=== PATIENT | female | born 1965 | race Two or more races ===

== ENCOUNTER 2019-04-05 07:46 | Outpatient (CLI) | payer OTHER | END 2019-04-05 07:51 | disposition home or self-care (01) | LOC: SONOGRAMA 07:46 | DX: E04.1 Nontoxic single thyroid nodule (principal) ==

== ENCOUNTER 2019-10-18 07:09 | Outpatient (CLI) | payer OTHER | END 2019-10-18 07:12 | disposition home or self-care (01) | LOC: RX STUDY 07:09 | DX: K59.09 Other constipation (principal) ==

== ENCOUNTER → 2019-10-27 | Outpatient (CLI) | payer OTHER | END | disposition home or self-care (01) | LOC: MRI 10-25 10:45 | DX: R11.2 Nausea with vomiting, unspecified (principal); R10.30 Lower abdominal pain, unspecified | CPT/HCPCS: 74183; A9575 ==

== ENCOUNTER 2020-01-12 07:43 | Outpatient (CLI) | payer OTHER | END 2020-01-16 08:00 | disposition home or self-care (01) | LOC: RAD 07:43 → TOM 07:43 → RAD 01-16 08:00 | DX: K59.09 Other constipation (principal) ==

== ENCOUNTER 2020-02-14 10:41 | Inpatient (IN) | payer OTHER ==
[~2020-02-14] VITALS: Ht 149.9 cm; Wt 45.4 kg
[2020-02-24] MEDS ORDERED: DERMACINRX5000 UNIT PO (12:56)
[2020-02-24] MEDS ORDERED: COMPLETE OMEGA1 EACH PO (12:56)
[2020-02-29] MEDS ORDERED: OMEGA-3 ACID ETH1 GM (10:24)
[2020-02-29] MEDS ORDERED: ZANAFLEX2 MG PO (10:24)
[2020-02-29] MEDS ORDERED: VITAMIN D31250 MCG (10:24)
[2020-02-29] MEDS ORDERED: MONTELUKAST SOD10 MG (10:24)
[2020-02-29] MEDS ORDERED: VITAMIN B-125000 MCG (10:25)
[2020-02-29] MEDS ORDERED: [UNRECOGNIZED DRUG - OTHER] (10:25)
[2020-02-29] MEDS ORDERED: GUAIFENESIN-DM1 EAC1 (10:25)
[2020-02-29] MEDS ORDERED: MAG-OXIDE400 MG (10:25)
[2020-02-29] MEDS ORDERED: MELATONIN 10 M1 EACH (10:25)
[2020-02-29] MEDS ORDERED: CLARITIN10 MG (10:25)
[2020-02-29] MEDS ORDERED: CO Q-10200 MG (10:25)
[2020-02-29] MEDS ORDERED: DULOXETINE HCL60 MG (10:26)
[2020-02-29] MEDS ORDERED: NABUMETONE750 MG (10:26)
== END 2020-03-03 18:14 | disposition home or self-care (01) | DRG 331 ==
LOC: SURG 02-29 07:20 → O/R 02-29 07:20 → SURH 02-29 10:15 → SURG 02-29 15:17
PROVIDERS: ADMIT Colon & Rectal Surgery; ATTEND Colon & Rectal Surgery
PROC: 0DJD8ZZ Inspection of Lower Intestinal Tract, Via Natural or Artificial Opening Endoscopic (ICD-10-PCS; 2020-02-29)
PROC: 3E0F7GC Introduction of Other Therapeutic Substance into Respiratory Tract, Via Natural or Artificial Opening (ICD-10-PCS; 2020-02-29)
PROC: 0DTN4ZZ Resection of Sigmoid Colon, Percutaneous Endoscopic Approach (ICD-10-PCS; principal; 2020-02-29 10:15)
DX: K59.01 Slow transit constipation (principal); J45.20 Mild intermittent asthma, uncomplicated

== ENCOUNTER 2020-05-24 09:37 | Outpatient (CLI) | payer OTHER ==
[~2020-05-24 09:37] MED LIST: CLARITIN10 MG; CO Q-10200 MG; COMPLETE OMEGA1 EACH PO; DERMACINRX5000 UNIT PO; DULOXETINE HCL60 MG; GUAIFENESIN-DM1 EAC1; MAG-OXIDE400 MG; MELATONIN 10 M1 EACH; MONTELUKAST SOD10 MG; NABUMETONE750 MG; OMEGA-3 ACID ETH1 GM; VITAMIN B-125000 MCG; VITAMIN D31250 MCG; ZANAFLEX2 MG PO; [UNRECOGNIZED DRUG - OTHER]
== END 2020-05-24 09:53 | disposition home or self-care (01) ==
LOC: NUCLEAR 09:37
PROVIDERS: ATTEND Acupuncturist
DX: E04.1 Nontoxic single thyroid nodule (principal)
CPT/HCPCS: 78013; A9512

== ENCOUNTER → 2021-01-26 | Outpatient (CLI) | payer OTHER | END | disposition home or self-care (01) | LOC: MAMO-SONO 08:45 → SONOGRAMA 08:51 | DX: E04.1 Nontoxic single thyroid nodule (principal) ==

== ENCOUNTER 2021-03-30 08:18 | Day surgery (SDC) | payer OTHER | END 2021-03-30 15:40 | disposition home or self-care (01) | LOC: AMB-ENDOS 08:18 | PROVIDERS: ATTEND Colon & Rectal Surgery | DX: D12.2 Benign neoplasm of ascending colon (principal); K64.0 First degree hemorrhoids; Z20.822 Contact with and (suspected) exposure to COVID-19 ==

== ENCOUNTER 2021-04-05 08:10 | Outpatient (CLI) | payer OTHER | END 2021-04-05 08:22 | disposition home or self-care (01) | LOC: MAMO-SONO 08:10 | DX: N60.02 Solitary cyst of left breast (principal); N60.01 Solitary cyst of right breast; Z12.31 Encounter for screening mammogram for malignant neoplasm of breast ==

== ENCOUNTER 2021-04-05 12:45 | Outpatient (CLI) | payer OTHER | END 2021-04-05 12:47 | disposition home or self-care (01) | LOC: NUCLEAR 12:45 | PROVIDERS: ATTEND Acupuncturist | DX: M81.0 Age-related osteoporosis without current pathological fracture (principal); Z13.820 Encounter for screening for osteoporosis ==

== ENCOUNTER 2021-05-31 14:27 | Emergency (ER) | payer OTHER ==
[~2021-05-31] VITALS: Ht 149.9 cm; Wt 56.7 kg
[2021-05-31] MEDS ORDERED: LEVOFLOXACIN750 MG PO (18:02)
[2021-05-31] MEDS ORDERED: PROTONIX40 MG PO (18:02)
[2021-05-31] MEDS ORDERED: PERCOCET 5-3251 EACH PO (18:02)
== END 2021-05-31 18:31 | disposition home or self-care (01) ==
LOC: ER 14:27
DX: K80.50 Calculus of bile duct without cholangitis or cholecystitis without obstruction (principal); R10.31 Right lower quadrant pain

== ENCOUNTER 2022-02-14 09:45 | Outpatient (CLI) | payer OTHER ==
[~2022-02-14 09:45] MED LIST changes: +LEVOFLOXACIN750 MG PO; +PERCOCET 5-3251 EACH PO; +PROTONIX40 MG PO
== END 2022-02-14 09:49 | disposition home or self-care (01) ==
LOC: SONOGRAMA 09:45
PROVIDERS: ATTEND Internal Medicine Sports Medicine
DX: E04.1 Nontoxic single thyroid nodule (principal)

== ENCOUNTER 2023-01-21 09:36 | Outpatient (CLI) | payer OTHER | END 2023-01-21 09:53 | disposition home or self-care (01) | LOC: MAMO-SONO 09:36 | PROVIDERS: ATTEND Acupuncturist | DX: R31.9 Hematuria, unspecified (principal); Z12.31 Encounter for screening mammogram for malignant neoplasm of breast; E04.8 Other specified nontoxic goiter ==

== ENCOUNTER 2025-01-19 07:18 | Outpatient (CLI) | payer OTHER | END 2025-01-19 07:24 | disposition home or self-care (01) | LOC: MAMO-SONO 07:18 | PROVIDERS: ATTEND Internal Medicine Sports Medicine | DX: N64.4 Mastodynia (principal); Z12.31 Encounter for screening mammogram for malignant neoplasm of breast; E04.1 Nontoxic single thyroid nodule ==